=== PATIENT | female | born 2005 | race African-American/Black ===

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

== ENCOUNTER 2025-02-03 19:00 | Emergency (ER) | payer SELFPAY ==
[2025-02-03 19:59] LABS: ALT (SGPT) 52 U/L (Less than 34); AST (SGOT) 83 U/L (11-34); Albumin 3.9 g/dL (3.1-4.5); Alkaline Phosphatase 81 U/L (40-110); Anion Gap 10 mmol/L (10-20); BUN (Urea Nitrogen) 9 mg/dL (7.0-18.7); Bilirubin, Total 0.5 mg/dL (0.3-1.2); Calc. Creatinine Clearance 0 mL/min (70-130); Calcium 9.0 mg/dL (7.8-10.44); Carbon Dioxide 23 mmol/L (22-29); Chloride 111 mmol/L (98-107); Globulin 3.2 g/dL (2.4-3.5); Glucose 97 mg/dL (70-105); Lipase 44 U/L (8-78); Potassium 3.2 mmol/L (3.5-5.1); Sodium 141 mmol/L (136-145)
[2025-02-03 20:20] LABS: Bacteria/HPF None Seen HPF (None Seen); CAUTI Indications for Culture Pelvic or flank pain; Glucose, Urine (Dipstick) Normal (Negative); Leukocyte Negative Leu/uL (Negative); Protein, Urine (Dipstick) 70 mg/dL (Neg-Trace); RBC/HPF 0-3 HPF (0-3); Specific Gravity, Urine 1.037 (1.002-1.036); WBC/HPF 0-3 HPF (0-3)
[2025-02-03 20:23] LABS: Urine Culture Reflex No No
[2025-02-03 20:27] LABS: Cocaine Metabolite Screen Negative (Negative); THC/Cannabinoid Screen PRELIM POSITIVE (Negative); Tricyclic Screen Negative (Negative)
== END 2025-02-03 22:29 ==
LOC: ERS 19:00
DX: O99.891 Other specified diseases and conditions complicating pregnancy (principal); R10.30 Lower abdominal pain, unspecified; Z3A.01 Less than 8 weeks gestation of pregnancy
CPT/HCPCS: 36415; 80053; 80306; 81001; 83690; 84702; 99284; Q0162

== ENCOUNTER 2025-02-13 17:35 | Emergency (ER) | payer SELFPAY ==
[2025-02-13 18:22] LABS: #Basophils 0.06 10x3/uL (0.0-0.2); #Eosinophils 0.08 10x3/uL (0.0-0.7); #Monocytes 0.76 10x3/uL (0.11-0.59); #Neutrophils 2.89 10x3/uL (1.40-6.50); %Basophils 1.1 % (0.0-1.0); %Eosinophils 1.4 % (0.0-10.0); %Lymphocytes 32.9 % (21.0-51.0); %Monocytes 13.4 % (0.0-10.0); %Neutrophils 51.0 % (42.0-75.0); Hematocrit 33.0 % (36.0-47.0); Hemoglobin 10.5 g/dL (12.0-16.0); Mean Corpuscular Hemoglobin 28.1 pg (27.0-31.0); Mean Corpuscular Volume 88.2 fL (78.0-98.0); Platelet Count 377 10x3/uL (130-400); Red Blood Cell (RBC) Count 3.74 mill/uL (4.20-5.40); White Blood Cell (WBC) Count 5.66 10x3/uL (4.8-10.8)
[2025-02-13] MEDS ORDERED: diphenhydrAMINE 50 MG/ML VIAL ONE (18:22)
[2025-02-13] MEDS ORDERED: Metoclopramide HCl 10 MG (2 mL) VIAL ONE (18:23)
[2025-02-13 18:26] LABS: BHCG - Serum Negative (NEGATIVE); Pregs Control Background? CLEAR/WHITE (CLR/WHITE); Pregs Control Bar Appear? YES (CONTROL BAR)
[2025-02-13 18:35] LABS: ALT (SGPT) 26 U/L (Less than 34); AST (SGOT) 38 U/L (11-34); Albumin 3.8 g/dL (3.1-4.5); Alkaline Phosphatase 76 U/L (40-110); Anion Gap 11 mmol/L (10-20); BUN (Urea Nitrogen) 7 mg/dL (7.0-18.7); Bilirubin, Total 0.4 mg/dL (0.3-1.2); Calc. Creatinine Clearance 0 mL/min (70-130); Calcium 8.7 mg/dL (7.8-10.44); Carbon Dioxide 24 mmol/L (22-29); Chloride 109 mmol/L (98-107); Globulin 2.5 g/dL (2.4-3.5); Glucose 88 mg/dL (70-105); Magnesium 1.9 mg/dL (1.6-2.6); Potassium 3.6 mmol/L (3.5-5.1); Sodium 140 mmol/L (136-145)
== END 2025-02-13 21:15 | disposition home or self-care (01) ==
LOC: ERS 17:35
DX: R41.82 Altered mental status, unspecified (principal); F17.290 Nicotine dependence, other tobacco product, uncomplicated
CPT/HCPCS: 70450; 80053; 83735; 84443; 84703; 85025; 95813; 96374; J1200; J2765

== ENCOUNTER 2025-02-17 23:58 | Emergency (ER) | payer SELFPAY ==
[2025-02-18 01:50] LABS: Bacteria/HPF None Seen HPF (None Seen); CAUTI Indications for Culture Dysuria,urgency,freq; Glucose, Urine (Dipstick) Normal (Negative); Leukocyte Negative Leu/uL (Negative); Protein, Urine (Dipstick) 10 mg/dL (Neg-Trace); RBC/HPF 0-3 HPF (0-3); Specific Gravity, Urine 1.019 (1.002-1.036); WBC/HPF 0-3 HPF (0-3)
[2025-02-18 01:53] LABS: Pregnancy Test - Urine (BHCG) Negative (Negative); Pregu Control Background? CLEAR/WHITE (CLR/WHITE); Pregu Control Bar Appear? YES (CONTROL BAR)
[2025-02-18 01:55] LABS: Urine Culture Reflex No No
[2025-02-18 02:00] LABS: Cocaine Metabolite Screen Negative (Negative); THC/Cannabinoid Screen Negative (Negative); Tricyclic Screen Negative (Negative)
== END 2025-02-18 03:27 | disposition home or self-care (01) ==
LOC: ERS 23:58
DX: M54.50 Low back pain, unspecified (principal); F17.290 Nicotine dependence, other tobacco product, uncomplicated
CPT/HCPCS: 80306; 80307; 81001; 81025; 99283

== ENCOUNTER 2025-02-19 02:30 | Emergency (ER) | payer SELFPAY ==
[2025-02-19 03:13] LABS: #Basophils 0.03 10x3/uL (0.0-0.2); #Eosinophils 0.08 10x3/uL (0.0-0.7); #Monocytes 0.59 10x3/uL (0.11-0.59); #Neutrophils 2.93 10x3/uL (1.40-6.50); %Basophils 0.5 % (0.0-1.0); %Eosinophils 1.3 % (0.0-10.0); %Lymphocytes 38.7 % (21.0-51.0); %Monocytes 9.9 % (0.0-10.0); %Neutrophils 49.4 % (42.0-75.0); Hematocrit 34.8 % (36.0-47.0); Hemoglobin 10.9 g/dL (12.0-16.0); Mean Corpuscular Hemoglobin 27.8 pg (27.0-31.0); Mean Corpuscular Volume 88.8 fL (78.0-98.0); Platelet Count 436 10x3/uL (130-400); Red Blood Cell (RBC) Count 3.92 mill/uL (4.20-5.40); White Blood Cell (WBC) Count 5.94 10x3/uL (4.8-10.8)
[2025-02-19 03:32] LABS: ALT (SGPT) 19 U/L (Less than 34); AST (SGOT) 47 U/L (11-34); Albumin 3.8 g/dL (3.1-4.5); Alkaline Phosphatase 84 U/L (40-110); Anion Gap 13 mmol/L (10-20); BUN (Urea Nitrogen) 10 mg/dL (7.0-18.7); Bilirubin, Total 0.4 mg/dL (0.3-1.2); Calc. Creatinine Clearance 0 mL/min (70-130); Calcium 8.9 mg/dL (7.8-10.44); Carbon Dioxide 23 mmol/L (22-29); Chloride 110 mmol/L (98-107); Globulin 2.9 g/dL (2.4-3.5); Glucose 89 mg/dL (70-105); Potassium 3.7 mmol/L (3.5-5.1); Sodium 142 mmol/L (136-145)
[2025-02-19 03:33] LABS: Acetaminophen Less than 10 mcg/mL (Less than 10); Salicylate Less than 8.0 mg/dL (Less than 8.0)
[2025-02-19 05:52] LABS: Bacteria/HPF None Seen HPF (None Seen); CAUTI Indications for Culture Pelvic or flank pain; Glucose, Urine (Dipstick) Normal (Negative); Leukocyte Negative Leu/uL (Negative); Protein, Urine (Dipstick) 20 mg/dL (Neg-Trace); RBC/HPF 0-3 HPF (0-3); Specific Gravity, Urine 1.025 (1.002-1.036); WBC/HPF 0-3 HPF (0-3)
[2025-02-19 05:53] LABS: Pregnancy Test - Urine (BHCG) Negative (Negative); Pregu Control Background? CLEAR/WHITE (CLR/WHITE); Pregu Control Bar Appear? YES (CONTROL BAR); Urine Culture Reflex No No
[2025-02-19 06:00] LABS: Cocaine Metabolite Screen Negative (Negative); THC/Cannabinoid Screen Negative (Negative); Tricyclic Screen Negative (Negative)
[2025-02-19] MEDS ORDERED: Bacitracin 1 PK ONE (13:33)
== END 2025-02-19 13:44 ==
LOC: ERS 02:30
DX: R45.851 Suicidal ideations (principal); F17.290 Nicotine dependence, other tobacco product, uncomplicated
CPT/HCPCS: 36415; 80053; 80306; 80307; 81001; 81025; 85025; 93005; 99285

== ENCOUNTER 2025-03-01 03:31 | Emergency (ER) | payer SELFPAY ==
[2025-03-01 06:10] LABS: Pregnancy Test - Urine (BHCG) Negative (Negative); Pregu Control Background? CLEAR/WHITE (CLR/WHITE); Pregu Control Bar Appear? YES (CONTROL BAR)
[2025-03-01 06:14] LABS: Cocaine Metabolite Screen PRELIM POSITIVE (Negative); THC/Cannabinoid Screen Negative (Negative); Tricyclic Screen Negative (Negative)
== END 2025-03-01 07:39 | disposition home or self-care (01) ==
LOC: ERS 03:31
DX: F19.10 Other psychoactive substance abuse, uncomplicated (principal); F17.290 Nicotine dependence, other tobacco product, uncomplicated
CPT/HCPCS: 36416; 80306; 81025; 99285

== ENCOUNTER 2025-03-01 11:49 | Emergency (ER) | payer SELFPAY | END 2025-03-01 12:24 | disposition home or self-care (01) | LOC: ERS 11:49 | DX: F14.10 Cocaine abuse, uncomplicated (principal); R11.0 Nausea; F17.290 Nicotine dependence, other tobacco product, uncomplicated | CPT/HCPCS: 99284; Q0162 ==

== ENCOUNTER 2025-03-06 15:17 | Emergency (ER) | payer SELFPAY | END 2025-03-06 16:30 | disposition home or self-care (01) | LOC: ERS 15:17 | DX: Z00.00 Encounter for general adult medical examination without abnormal findings (principal); F17.290 Nicotine dependence, other tobacco product, uncomplicated | CPT/HCPCS: 99283 ==

== ENCOUNTER 2025-04-10 14:07 | Emergency (ER) | payer SELFPAY ==
[~2025-04-10 14:07] MED LIST: Iopamidol-370 76% 500 ML MDV (1 ML CHARGE) ONE
[2025-04-10 14:57] LABS: #Basophils 0.05 10x3/uL (0.0-0.2); #Eosinophils 0.04 10x3/uL (0.0-0.7); #Monocytes 0.89 10x3/uL (0.11-0.59); #Neutrophils 3.27 10x3/uL (1.40-6.50); %Basophils 0.9 % (0.0-1.0); %Eosinophils 0.7 % (0.0-10.0); %Lymphocytes 25.1 % (21.0-51.0); %Monocytes 15.6 % (0.0-10.0); %Neutrophils 57.3 % (42.0-75.0); Hematocrit 37.5 % (36.0-47.0); Hemoglobin 11.6 g/dL (12.0-16.0); Mean Corpuscular Hemoglobin 27.2 pg (27.0-31.0); Mean Corpuscular Volume 88.0 fL (78.0-98.0); Platelet Count 406 10x3/uL (130-400); Red Blood Cell (RBC) Count 4.26 mill/uL (4.20-5.40); White Blood Cell (WBC) Count 5.70 10x3/uL (4.8-10.8)
[2025-04-10 14:57] LABS: Pregnancy Test - Urine (BHCG) Negative (Negative); Pregu Control Background? CLEAR/WHITE (CLR/WHITE); Pregu Control Bar Appear? YES (CONTROL BAR)
[2025-04-10 15:00] LABS: Bacteria/HPF None Seen HPF (None Seen); CAUTI Indications for Culture Pelvic or flank pain; Glucose, Urine (Dipstick) Normal (Negative); Leukocyte Negative Leu/uL (Negative); Protein, Urine (Dipstick) Negative (Neg-Trace); RBC/HPF 0-3 HPF (0-3); Specific Gravity, Urine 1.024 (1.002-1.036); WBC/HPF 0-3 HPF (0-3)
[2025-04-10 15:03] LABS: Urine Culture Reflex No No
[2025-04-10 15:12] LABS: ALT (SGPT) 23 U/L (Less than 34); AST (SGOT) 63 U/L (11-34); Albumin 4.0 g/dL (3.1-4.5); Alkaline Phosphatase 130 U/L (40-110); Anion Gap 14 mmol/L (10-20); BUN (Urea Nitrogen) 15 mg/dL (7.0-18.7); Bilirubin, Total 0.2 mg/dL (0.3-1.2); Calc. Creatinine Clearance 0 mL/min (70-130); Calcium 8.9 mg/dL (7.8-10.44); Carbon Dioxide 21 mmol/L (22-29); Chloride 110 mmol/L (98-107); Globulin 3.2 g/dL (2.4-3.5); Glucose 91 mg/dL (70-105); Potassium 3.9 mmol/L (3.5-5.1); Sodium 141 mmol/L (136-145)
[2025-04-10] MEDS ORDERED: Ondansetron PF 4 MG/2 ML Vial ONE (16:18)
[2025-04-10] MEDS ORDERED: Ketorolac Tromethamine 30 MG (1 mL) VIAL ONE (16:18)
== END 2025-04-10 19:06 | disposition home or self-care (01) ==
LOC: ERS 14:07
DX: I88.0 Nonspecific mesenteric lymphadenitis (principal)
CPT/HCPCS: 74177; 80053; 81001; 81025; 83690; 85025; 96374; 96375; J1885

== ENCOUNTER 2025-04-18 23:23 | Emergency (ER) | payer SELFPAY ==
[2025-04-18 23:52] LABS: #Basophils 0.04 10x3/uL (0.0-0.2); #Eosinophils 0.05 10x3/uL (0.0-0.7); #Monocytes 0.63 10x3/uL (0.11-0.59); #Neutrophils 4.40 10x3/uL (1.40-6.50); %Basophils 0.6 % (0.0-1.0); %Eosinophils 0.7 % (0.0-10.0); %Lymphocytes 29.0 % (21.0-51.0); %Monocytes 8.7 % (0.0-10.0); %Neutrophils 60.9 % (42.0-75.0); Hematocrit 35.9 % (36.0-47.0); Hemoglobin 11.6 g/dL (12.0-16.0); Mean Corpuscular Hemoglobin 27.6 pg (27.0-31.0); Mean Corpuscular Volume 85.5 fL (78.0-98.0); Platelet Count 457 10x3/uL (130-400); Red Blood Cell (RBC) Count 4.20 mill/uL (4.20-5.40); White Blood Cell (WBC) Count 7.23 10x3/uL (4.8-10.8)
[2025-04-19 00:07] LABS: ALT (SGPT) 19 U/L (Less than 34); AST (SGOT) 33 U/L (11-34); Albumin 4.3 g/dL (3.1-4.5); Alkaline Phosphatase 137 U/L (40-110); Anion Gap 12 mmol/L (10-20); BUN (Urea Nitrogen) 13 mg/dL (7.0-18.7); Bilirubin, Total 0.2 mg/dL (0.3-1.2); Calc. Creatinine Clearance 0 mL/min (70-130); Calcium 9.5 mg/dL (7.8-10.44); Carbon Dioxide 25 mmol/L (22-29); Chloride 111 mmol/L (98-107); Globulin 3.3 g/dL (2.4-3.5); Glucose 105 mg/dL (70-105); Lipase 65 U/L (8-78); Potassium 3.6 mmol/L (3.5-5.1); Sodium 144 mmol/L (136-145)
[2025-04-19 00:40] LABS: BHCG - Serum Negative (NEGATIVE); Pregs Control Background? CLEAR/WHITE (CLR/WHITE); Pregs Control Bar Appear? YES (CONTROL BAR)
[2025-04-19] MEDS ORDERED: Ondansetron PF 4 MG/2 ML Vial ONE (00:40)
[2025-04-19 00:43] LABS: Lipase 63.0 U/L (8-78)
[2025-04-19 00:44] LABS: CRP, High Sensitivity at Bryan 0.13 mg/dL (< or = 0.5)
[2025-04-19 03:14] LABS: Bacteria/HPF None Seen HPF (None Seen); CAUTI Indications for Culture Pelvic or flank pain; Glucose, Urine (Dipstick) Normal (Negative); Leukocyte Negative Leu/uL (Negative); Protein, Urine (Dipstick) Negative (Neg-Trace); RBC/HPF 0-3 HPF (0-3); Specific Gravity, Urine 1.021 (1.002-1.036); WBC/HPF None Seen HPF (0-3); Yeast-Budding 2+ HPF (None Seen)
[2025-04-19 03:15] LABS: Pregnancy Test - Urine (BHCG) Negative (Negative); Pregu Control Background? CLEAR/WHITE (CLR/WHITE); Pregu Control Bar Appear? YES (CONTROL BAR)
[2025-04-19 03:16] LABS: Urine Culture Reflex No No
[2025-04-19] MEDS ORDERED: Fluconazole 100 MG TAB PO SCH (03:45)
[2025-04-19] MEDS ORDERED: Iopamidol-370 76% 500 ML MDV (1 ML CHARGE) ONE (11:02)
[2025-04-19 14:21] LABS: Chlamydia by PCR, Vaginal Swab Not Detected (NotDetected); GC by PCR, Vaginal Swab Not Detected (NotDetected)
== END 2025-04-19 03:47 | disposition home or self-care (01) ==
LOC: ERS 23:23
DX: N39.0 Urinary tract infection, site not specified (principal); B49 Unspecified mycosis; R10.9 Unspecified abdominal pain
CPT/HCPCS: 36415; 74177; 80053; 81001; 81025; 83690; 84484; 84703; 85025; 86141; 87491; 87591; 93005; 96361; 96374; 96375; J2270; J2405; Q9967

== ENCOUNTER 2025-07-04 06:18 | Emergency (ER) | payer SELFPAY ==
[2025-07-04 06:57] LABS: #Basophils 0.03 10x3/uL (0.0-0.2); #Eosinophils Less than 0.03 10x3/uL (0.0-0.7); #Monocytes 0.71 10x3/uL (0.11-0.59); #Neutrophils 10.37 10x3/uL (1.40-6.50); %Basophils 0.3 % (0.0-1.0); %Eosinophils 0.0 % (0.0-10.0); %Lymphocytes 4.6 % (21.0-51.0); %Monocytes 6.1 % (0.0-10.0); %Neutrophils 88.7 % (42.0-75.0); Hematocrit 37.1 % (36.0-47.0); Hemoglobin 12.1 g/dL (12.0-16.0); Mean Corpuscular Hemoglobin 27.4 pg (27.0-31.0); Mean Corpuscular Volume 83.9 fL (78.0-98.0); Platelet Count 405 10x3/uL (130-400); Red Blood Cell (RBC) Count 4.42 mill/uL (4.20-5.40); White Blood Cell (WBC) Count 11.69 10x3/uL (4.8-10.8)
[2025-07-04 07:04] LABS: BHCG - Serum Negative (NEGATIVE); Pregs Control Background? CLEAR/WHITE (CLR/WHITE); Pregs Control Bar Appear? YES (CONTROL BAR)
[2025-07-04 07:15] LABS: Acetaminophen Less than 10 mcg/mL (Less than 10); Salicylate Less than 8.0 mg/dL (Less than 8.0)
[2025-07-04 07:16] LABS: ALT (SGPT) 15 U/L (Less than 34); AST (SGOT) 29 U/L (11-34); Albumin 4.3 g/dL (3.1-4.5); Alkaline Phosphatase 78 U/L (40-110); Anion Gap 12 mmol/L (10-20); BUN (Urea Nitrogen) 9 mg/dL (7.0-18.7); Bilirubin, Total 0.3 mg/dL (0.3-1.2); Calc. Creatinine Clearance 0 mL/min (70-130); Calcium 9.8 mg/dL (7.8-10.44); Carbon Dioxide 22 mmol/L (22-29); Chloride 109 mmol/L (98-107); Globulin 3.7 g/dL (2.4-3.5); Glucose 104 mg/dL (70-105); Potassium 3.4 mmol/L (3.5-5.1); Sodium 140 mmol/L (136-145)
[2025-07-04] MEDS ORDERED: Proparacaine 0.5% Opth 15 ML BOT ONE (08:51)
[2025-07-04] MEDS ORDERED: Fluorescein Opthalmic Strip ONE (08:51)
[2025-07-04] MEDS ORDERED: Acetaminophen 500 MG TAB ONE (09:06)
[2025-07-04] MEDS ORDERED: Ibuprofen 800 MG TAB ONE (09:06)
[2025-07-04 09:55] LABS: Bacteria/HPF 3+ HPF (None Seen); CAUTI Indications for Culture Dysuria,urgency,freq; Glucose, Urine (Dipstick) Normal (Negative); Leukocyte Negative Leu/uL (Negative); Protein, Urine (Dipstick) 20 mg/dL (Neg-Trace); Specific Gravity, Urine 1.015 (1.002-1.036); WBC/HPF 0-3 HPF (0-3)
[2025-07-04 09:56] LABS: Urine Culture Reflex No No
[2025-07-04 10:02] LABS: Cocaine Metabolite Screen Negative (Negative); THC/Cannabinoid Screen PRELIM POSITIVE (Negative); Tricyclic Screen Negative (Negative)
== END 2025-07-04 10:12 ==
LOC: EEVIPCON 06:18 → ERS 06:18
DX: S05.11XA Contusion of eyeball and orbital tissues, right eye, initial encounter (principal); S09.90XA Unspecified injury of head, initial encounter; N93.9 Abnormal uterine and vaginal bleeding, unspecified; Y04.0XXA Assault by unarmed brawl or fight, initial encounter
CPT/HCPCS: 70450; 70486; 72125; 80053; 80306; 80307; 81001; 84703; 85025; 90471; 90715; 93005

== ENCOUNTER 2025-07-04 19:38 | Emergency (ER) | payer SELFPAY ==
[2025-07-04 20:49] LABS: #Basophils 0.03 10x3/uL (0.0-0.2); #Eosinophils Less than 0.03 10x3/uL (0.0-0.7); #Monocytes 0.73 10x3/uL (0.11-0.59); #Neutrophils 8.19 10x3/uL (1.40-6.50); %Basophils 0.3 % (0.0-1.0); %Eosinophils 0.2 % (0.0-10.0); %Lymphocytes 8.1 % (21.0-51.0); %Monocytes 7.4 % (0.0-10.0); %Neutrophils 83.6 % (42.0-75.0); Hematocrit 38.6 % (36.0-47.0); Hemoglobin 12.6 g/dL (12.0-16.0); Mean Corpuscular Hemoglobin 27.4 pg (27.0-31.0); Mean Corpuscular Volume 83.9 fL (78.0-98.0); Platelet Count 409 10x3/uL (130-400); Red Blood Cell (RBC) Count 4.60 mill/uL (4.20-5.40); White Blood Cell (WBC) Count 9.80 10x3/uL (4.8-10.8)
[2025-07-04 21:06] LABS: ALT (SGPT) 16 U/L (Less than 34); AST (SGOT) 33 U/L (11-34); Albumin 4.2 g/dL (3.1-4.5); Alkaline Phosphatase 77 U/L (40-110); Anion Gap 15 mmol/L (10-20); BUN (Urea Nitrogen) 5 mg/dL (7.0-18.7); Bilirubin, Total 0.5 mg/dL (0.3-1.2); Calc. Creatinine Clearance 0 mL/min (70-130); Calcium 9.4 mg/dL (7.8-10.44); Carbon Dioxide 20 mmol/L (22-29); Chloride 108 mmol/L (98-107); Globulin 3.7 g/dL (2.4-3.5); Glucose 78 mg/dL (70-105); Potassium 3.5 mmol/L (3.5-5.1); Sodium 139 mmol/L (136-145)
== END 2025-07-04 22:38 | disposition home or self-care (01) ==
LOC: ERS 19:38
DX: S00.83XA Contusion of other part of head, initial encounter (principal); S00.11XA Contusion of right eyelid and periocular area, initial encounter; Y04.8XXA Assault by other bodily force, initial encounter; Y92.89 Other specified places as the place of occurrence of the external cause
CPT/HCPCS: 84146; 95813; 99284